=== PATIENT | male | born 1975 | race Caucasian/White ===

== ENCOUNTER 2018-04-18 14:52 | Emergency (ER) | payer MEDICAID ==
[~2018-04-18] VITALS: Ht 188 cm; Wt 150.0 kg
[~2018-04-18 14:52] MED LIST: ALBU8.5H8 IH; ALBU8HFA PO; HYDR30CR79 TOP
[2018-04-18] MEDS ORDERED: ketorolac tromethamine 15mg/ml inj. IM ONE (17:50)
[2018-04-18] MEDS ORDERED: diazepam 5mg tablet PO ONE (17:50)
[2018-04-18] MEDS ORDERED: HYDROcodone/acetaminophen 10/325mg tab PO ONE (17:50)
[2018-04-18] MEDS ORDERED: predniSONE 20 mg tablet PO ONE (17:50)
[2018-04-18] MEDS ORDERED: LIDO700A32 TOP (18:16)
[2018-04-18] MEDS ORDERED: IBUP-1986 PO (18:16)
[2018-04-18] MEDS ORDERED: DICL100G15 TOP (18:16)
[2018-04-18] MEDS ORDERED: CYCL-1 PO (18:16)
[2018-04-18] MEDS ORDERED: PRED50TA PO (18:16)
[2018-04-18 18:37] VITALS: BP 143/93
== END 2018-04-18 18:39 | disposition home or self-care (01) ==
LOC: ER 14:52
DX: G89.29 Other chronic pain (principal); M54.5 Low back pain; I10 Essential (primary) hypertension; Z79.899 Other long term (current) drug therapy
CPT/HCPCS: 96372; 99284; J1885; J7512

== ENCOUNTER 2018-07-04 11:53 | Emergency (ER) | payer MEDICAID ==
[~2018-07-04] VITALS: Ht 188 cm; Wt 149.0 kg
[~2018-07-04 11:53] MED LIST changes: +CYCL-1 PO; +DICL100G15 TOP; +IBUP-1986 PO; +LIDO700A32 TOP; +PRED50TA PO
[2018-07-04 12:09] VITALS: BP 143/81
[2018-07-04] MEDS ORDERED: proparacaine 0.5% ophthalmic drops 15ml LEFTEYE ONE (12:10)
== END 2018-07-04 13:20 | disposition home or self-care (01) ==
LOC: ER 11:53
DX: Z77.098 Contact with and (suspected) exposure to other hazardous, chiefly nonmedicinal, chemicals (principal); I10 Essential (primary) hypertension; G89.29 Other chronic pain; Z98.890 Other specified postprocedural states; Z79.899 Other long term (current) drug therapy
CPT/HCPCS: 99282

== ENCOUNTER 2018-11-13 21:36 | Emergency (ER) | payer MEDICAID ==
[~2018-11-13] VITALS: Ht 188 cm; Wt 120.9 kg
--- NOTE | 2018-11-13 21:46 | NUR ---
SMITA CASE #: [id number] PROVIDED BY PATIENT.
[2018-11-13] MEDS ORDERED: ketorolac trometh inj. 60 MG/2 ML VIAL IM ONE (22:45)
[2018-11-13] MEDS ORDERED: HYDROcodone/acetaminophen 10/325mg tab PO ONE (22:45)
[2018-11-13 23:48] VITALS: BP 164/108
== END 2018-11-13 23:50 | disposition home or self-care (01) ==
LOC: ER 21:37
DX: S62.306A Unspecified fracture of fifth metacarpal bone, right hand, initial encounter for closed fracture (principal); S20.212A Contusion of left front wall of thorax, initial encounter; S00.412A Abrasion of left ear, initial encounter; I10 Essential (primary) hypertension; M19.90 Unspecified osteoarthritis, unspecified site; G89.29 Other chronic pain; Z98.890 Other specified postprocedural states; Z79.899 Other long term (current) drug therapy; Y04.2XXA Assault by strike against or bumped into by another person, initial encounter; Y93.89 Activity, other specified; Y92.89 Other specified places as the place of occurrence of the external cause; Y99.8 Other external cause status
CPT/HCPCS: 29125; 71045; 73130; 96372; 99283; J1885

== ENCOUNTER → 2020-09-24 | Emergency (ER) | payer MEDICAID ==
[~2020-09-24] VITALS: Ht 188 cm; Wt 150.5 kg
[~2020-09-24] MED LIST changes: +CEPH250T PO; +LIDOcaine 1% W/epiNEPHrine 1:200,000 10ml vial IJ ONE; +SULF1TAB49 PO
[2020-09-24 13:42] VITALS: BP 154/105
== END | disposition home or self-care (01) ==
LOC: ER 13:10
DX: L02.211 Cutaneous abscess of abdominal wall (principal); I10 Essential (primary) hypertension; M19.90 Unspecified osteoarthritis, unspecified site; G89.29 Other chronic pain; Z98.890 Other specified postprocedural states; Z88.8 Allergy status to other drugs, medicaments and biological substances; Z79.2 Long term (current) use of antibiotics; Z79.899 Other long term (current) drug therapy
CPT/HCPCS: 10060; 99283

== ENCOUNTER 2021-06-28 17:41 | Emergency (ER) | payer MEDICAID ==
[~2021-06-28] VITALS: Ht 188 cm; Wt 156.8 kg
[~2021-06-28 17:41] MED LIST changes: +ALBU8.5H17 IH; -ALBU8.5H8 IH; -CEPH250T PO; -LIDOcaine 1% W/epiNEPHrine 1:200,000 10ml vial IJ ONE; -SULF1TAB49 PO
[2021-06-28 17:52] VITALS: BP 198/131
[2021-06-28] MEDS ORDERED: KEN0.1O TP (19:20)
== END 2021-06-28 19:23 | disposition home or self-care (01) ==
LOC: ER 17:42
DX: L23.9 Allergic contact dermatitis, unspecified cause (principal); I10 Essential (primary) hypertension; M19.90 Unspecified osteoarthritis, unspecified site; G89.29 Other chronic pain; Z98.890 Other specified postprocedural states; Z79.899 Other long term (current) drug therapy
CPT/HCPCS: 99283

== ENCOUNTER 2021-12-23 16:27 | Inpatient (IN) | payer MEDICAID ==
[~2021-12-23] VITALS: Ht 188 cm; Wt 156.8 kg
[2021-12-23] MEDS ORDERED: nitroGLYCERIN 0.4mg SUBLingual tab SL PRN ×2 (16:40→17:50)
[2021-12-23] MEDS ORDERED: metoprolol tartrate 1mg/ml inj IV ONE (16:45)
[2021-12-23 17:02] LABS: BASOPHILS # (AUTO) 0.1 X10'3 (0-0.2); BASOPHILS % (AUTO) 0.5 % (0-1); EOSINOPHILS # (AUTO) 0.2 X10'3 (0-0.9); EOSINOPHILS % (AUTO) 1.6 % (0-6); HEMATOCRIT 46.8 % (42.0-52.0); HEMOGLOBIN 15.7 g/dl (14.0-17.9); LYMPHOCYTES # (AUTO) 2.2 X10'3 (1.1-4.8); LYMPHOCYTES % (AUTO) 19.6 % (21-51); MEAN CORPUSCULAR HEMOGLOBIN 27.4 PG (27.0-31.0); MEAN CORPUSCULAR HGB CONC 33.6 g/dL (33.0-36.5); MEAN CORPUSCULAR VOLUME 81.7 FL (78-98); MEAN PLATELET VOLUME 9.4 FL (7.4-10.4); MONOCYTES # (AUTO) 0.6 X10'3 (0-0.9); MONOCYTES % (AUTO) 5.9 % (2-12); NEUTROPHILS % (AUTO) 72.4 % (42-75); PLATELET COUNT 233 X10'3 (140-440); RED BLOOD COUNT 5.73 X10'6 (4.70-6.10); RED CELL DISTRIBUTION WIDTH 14.5 % (11.5-14.5)
[2021-12-23 17:23] LABS: ALANINE AMINOTRANSFERASE 29 U/L (12-78); ALBUMIN 3.7 G/DL (3.4-5.0); ALBUMIN/GLOBULIN RATIO 1.1 (1.1-1.5); ALKALINE PHOSPHATASE 69 IU/L (46-116); ANION GAP 8 (8-16); ASPARTATE AMINO TRANSFERASE 20 U/L (10-37); BILIRUBIN,TOTAL 0.3 MG/DL (0.1-1.0); BLOOD UREA NITROGEN 16 MG/DL (7-18); BUN/CREATININE RATIO 17.4 (5.4-32.0); CALCIUM 8.8 MG/DL (8.5-10.1); CHLORIDE 106 MMOL/L (99-107); CREATININE 0.92 MG/DL (0.60-1.10); ETHANOL < 0.010 GM/DL (0.0-0.010); GLUCOSE 119 MG/DL (70-104); SODIUM 143 MMOL/L (135-145); TOTAL CARBON DIOXIDE 29.4 MMOL/L (24-32); TOTAL PROTEIN 7.1 G/DL (6.4-8.2); eGFR 89 ML/MIN
[2021-12-23] MEDS ORDERED: ondansetron/PF 4mg/2ml inj IV ONE (17:25)
[2021-12-23] MEDS ORDERED: potassium Cl 20 mEq SR tablet PO STA (17:26)
[2021-12-23] MEDS ORDERED: POTASSIUM BICARB 20meq eff tab 20 MEQ TABLET.EFF PO PRN (17:50)
[2021-12-23] MEDS ORDERED: morphine 2 MG/ML inj. syringe IV PRN ×2 (17:50)
[2021-12-23] MEDS ORDERED: PERFLUTREN PROTEIN-A MICROSPHR (Optison) 0.22 MG/ML 3ML VIAL IV ONE (17:50)
[2021-12-23] MEDS ORDERED: magnesium hydroxide 30ml (MOM) UD suspension PO PRN (17:50)
[2021-12-23] MEDS ORDERED: mag hydrox/Alum hydrox/simeth 30ml oral suspension PO PRN (17:50)
[2021-12-23] MEDS ORDERED: ondansetron/PF 4mg/2ml inj IV PRN (17:50)
[2021-12-23] MEDS ORDERED: acetaminophen 325mg tablet PO PRN (17:50)
[2021-12-23] MEDS ORDERED: metoprolol tartrate 1mg/ml inj IV PRN (17:50)
[2021-12-23] MEDS ORDERED: aminophylline 250mg/10ml inj. IV PRN (17:50)
[2021-12-23] MEDS ORDERED: nitroGLYCERIN 1gm ointment UD TP ONE (17:50)
[2021-12-23] MEDS ORDERED: magnesium Cl slow-release 64mg tablet PO PRN (17:50)
[2021-12-23] MEDS ORDERED: potassium CL 10mEq/100ml bag 100 ML IV PRN (17:50)
[2021-12-23] MEDS ORDERED: magnesium 4gm in 100ml NS 100 ML IV PRN (17:50)
[2021-12-23] MEDS ORDERED: magnesium 2GM in 50ml NS 50 ML IV PRN (17:50)
[2021-12-23] MEDS ORDERED: regadenoson 0.4mg/5ml syringe IV PRN (17:50)
[2021-12-23] MEDS ORDERED: hydrALAZINE 20mg/ml inj. IV PRN (17:55)
[2021-12-23] MEDS: normal saline 1000ml 1,000 ML IV SCH ×2 (18:07→21:55)
--- NOTE | 2021-12-23 18:25 | NUR ---
report to todd spicer
[2021-12-23] MEDS ORDERED: LISI1TAB51 PO (18:29)
[2021-12-23] MEDS ORDERED: LEVO75TA7 PO (18:29)
[2021-12-23] MEDS ORDERED: HYDR-3972 PO (18:29)
[2021-12-23] MEDS ORDERED: INDLA80C PO (18:29)
--- NOTE | 2021-12-23 18:44 | NUR ---
Dayshift reports treating K with po potassium. Pt pink, alert, no acute/resp distress. Family at bedside. Bed in lowest position, wheels locked, rail 2/2 up, call [place] in reach. Pt states chest pain is much better than when he arrived, almost unmentionable.
[2021-12-23] MEDS: K and/or MAG REPLACEMENT MC SCH (20:00)
[2021-12-23] MEDS: propranolol 40mg tablet PO SCH (20:27)
[2021-12-23] MEDS: docusate sod 100mg capsule PO SCH (20:27)
[2021-12-23 20:32] LABS: POTASSIUM 3.1 MMOL/L (3.5-5.1)
[2021-12-23] MEDS: HYDROcodone/acetaminophen 10/325mg tab PO PRN (20:39)
--- NOTE | 2021-12-23 20:42 | NUR ---
Pt pink, no acute/resp distress. Bed in lowest position, wheels locked, rail 2/2 up. Pt laying supine. Pt able to reposition self prn. Will continue to monitor for acute changes and needs.
[2021-12-23 20:44] LABS: CLARITY,URINE CLEAR (Clear); COLOR,URINE YELLOW (Yellow); GLUCOSE, URINE NEGATIVE (Neg); KETONES,URINE NEGATIVE (Neg); LEUKOCYTE ESTERASE ,URINE NEGATIVE (Neg); NITRITES, URINE NEGATIVE (Neg); OCCULT BLOOD,URINE TRACE-INTACT (Neg); PROTEIN,URINE NEGATIVE (Neg); UROBILINOGEN,URINE 0.2 E.U/dL (0.2-1.0)
[2021-12-23] MEDS ORDERED: PROP10TA10 PO (20:44)
[2021-12-23] MEDS ORDERED: KETO15CR2 (20:44)
[2021-12-23] MEDS ORDERED: PROP20TA6 PO (20:44)
[2021-12-23] MEDS ORDERED: MELO-102 PO (20:44)
[2021-12-23] MEDS ORDERED: CLON-442 (20:44)
[2021-12-23] MEDS ORDERED: AMLO5TAB16 PO (20:44)
[2021-12-23] MEDS ORDERED: NAPR-996 PO (20:44)
[2021-12-23 20:50] LABS: URINE AMPHETAMINE SCREEN NEGATIVE (Neg); URINE BARBITUATE SCREEN NEGATIVE (Neg); URINE BENZODIAZEPINES SCREEN NEGATIVE (Neg); URINE CANNABINOID SCREEN POSITIVE (Neg); URINE COCAINE SCREEN NEGATIVE (Neg); URINE METHADONE SCREEN NEGATIVE (Neg); URINE OPIATE SCREEN POSITIVE (Neg); URINE PHENCYCLIDINE SCREEN NEGATIVE (Neg)
[2021-12-23 20:55] LABS: UA COLLECTION TYPE CLN CATCH MIDSTREAM
[2021-12-23 20:57] LABS: BACTERIA,URINE NONE SEEN /HPF (Neg); MUCUS STRANDS FEW /LPF (Neg); RBC,URINE 0-2 /HPF (0-2); SQUAMOUS EPITHELIAL CELL,UR FEW /LPF (FEW); WBC,URINE NONE SEEN /HPF (0-4)
[2021-12-23 20:58] LABS: AMORPHOUS PHOSPHATES 1+
--- NOTE | 2021-12-23 21:09 | NUR ---
Attempted to call report. RN to call the ED when ready for report. Pt pink, no acute/resp distress. Bed in lowest position, wheels locked, rail 2/2 up. Pt laying supine. Pt able to reposition self prn. Will continue to monitor for acute changes and needs.
--- NOTE | 2021-12-23 21:13 | NUR ---
UA spec collected, labeled and walked to lab. Pt pink, alert, no acute/resp distress. PIV site c/d/i s complication or adverse.
[2021-12-23] MEDS: POTASSIUM BICARB 20meq eff tab 20 MEQ TABLET.EFF PO PRN (21:55)
[2021-12-23 22:00] VITALS: BP 121/77
[2021-12-24] VITALS (13 sets, daily range): BP systolic 126–163; BP diastolic 79–102
[2021-12-24] MEDS: propranolol 40mg tablet PO SCH ×2 (07:04→19:44)
[2021-12-24] MEDS: levoTHYROXINE 75mcg tablet PO SCH (07:04)
[2021-12-24] MEDS: HYDROcodone/acetaminophen 10/325mg tab PO PRN ×3 (07:04→20:59)
[2021-12-24] MEDS: HYDROchlorothiazide 25mg tablet PO SCH (07:05)
[2021-12-24] MEDS: aspirin 81mg tab.chew PO SCH (07:06)
[2021-12-24] MEDS: enoxaparin 40mg/0.4ml syringe SUBCUT SCH (07:07)
[2021-12-24] MEDS: lisinopril 20mg tablet PO SCH (07:13)
[2021-12-24 07:23] LABS: BASOPHILS % (AUTO) 0.2 % (0-1); EOSINOPHILS # (AUTO) 0.1 X10'3 (0-0.9); EOSINOPHILS % (AUTO) 1.2 % (0-6); HEMATOCRIT 43.3 % (42.0-52.0); HEMOGLOBIN 14.1 g/dl (14.0-17.9); LYMPHOCYTES # (AUTO) 1.7 X10'3 (1.1-4.8); LYMPHOCYTES % (AUTO) 15.1 % (21-51); MEAN CORPUSCULAR HEMOGLOBIN 26.8 PG (27.0-31.0); MEAN CORPUSCULAR HGB CONC 32.6 g/dL (33.0-36.5); MEAN CORPUSCULAR VOLUME 82.3 FL (78-98); MEAN PLATELET VOLUME 9.4 FL (7.4-10.4); MONOCYTES # (AUTO) 0.8 X10'3 (0-0.9); MONOCYTES % (AUTO) 7.2 % (2-12); NEUTROPHILS # (AUTO) 8.5 X10'3 (1.8-7.7); NEUTROPHILS % (AUTO) 76.3 % (42-75); PLATELET COUNT 212 X10'3 (140-440); RED BLOOD COUNT 5.26 X10'6 (4.70-6.10); RED CELL DISTRIBUTION WIDTH 14.4 % (11.5-14.5); WHITE BLOOD COUNT 11.1 X10'3 (4.5-11.0)
[2021-12-24 07:27] LABS: ALBUMIN 3.2 G/DL (3.4-5.0); ANION GAP 8 (8-16); BLOOD UREA NITROGEN 12 MG/DL (7-18); BUN/CREATININE RATIO 14.6 (5.4-32.0); CALCIUM 8.2 MG/DL (8.5-10.1); CHLORIDE 106 MMOL/L (99-107); CREATININE 0.82 MG/DL (0.60-1.10); GLUCOSE 100 MG/DL (70-104); POTASSIUM 3.3 MMOL/L (3.5-5.1); SODIUM 143 MMOL/L (135-145); TOTAL CARBON DIOXIDE 29.1 MMOL/L (24-32); eGFR > 90 ML/MIN
[2021-12-24] MEDS: docusate sod 100mg capsule PO SCH ×2 (08:00→19:43)
[2021-12-24] MEDS: K and/or MAG REPLACEMENT MC SCH ×2 (08:00→19:53)
[2021-12-24] MEDS ORDERED: aminophylline 500mg/20ml vial IV PRN (08:51)
--- NOTE | 2021-12-24 09:27 | NUR ---
Patient in room PCU 3015B. I have received report from JOYCE Asencio and had the opportunity to ask questions and assume patient care.
[2021-12-24] MEDS: POTASSIUM BICARB 20meq eff tab 20 MEQ TABLET.EFF PO PRN ×3 (10:21→19:43)
[2021-12-24] MEDS: normal saline 1000ml 1,000 ML IV SCH ×2 (13:06→23:33)
--- NOTE | 2021-12-24 14:18 | NUR ---
Per Dr. Patel telephone order okay to change patient's diet to heart healthy and then place pt at NPO at midnight tonight for possible heart cath pending cardiology's recommendations [facility]
--- NOTE | 2021-12-24 18:11 | NUR ---
Problems reprioritized. Patient report given, questions answered & plan of care reviewed with JOYCE Lawler[].
[2021-12-25 02:00] VITALS: BP 143/97
[2021-12-25 06:00] VITALS: BP 175/102
--- NOTE | 2021-12-25 06:32 | NUR ---
End of shift report given to Michell COOK. Pt stable. No acute complaints.
[2021-12-25 06:36] LABS: BASOPHILS % (AUTO) 0.2 % (0-1); EOSINOPHILS # (AUTO) 0.2 X10'3 (0-0.9); EOSINOPHILS % (AUTO) 2.2 % (0-6); HEMATOCRIT 45.9 % (42.0-52.0); HEMOGLOBIN 15.5 g/dl (14.0-17.9); LYMPHOCYTES # (AUTO) 1.7 X10'3 (1.1-4.8); MEAN CORPUSCULAR HEMOGLOBIN 27.6 PG (27.0-31.0); MEAN CORPUSCULAR HGB CONC 33.7 g/dL (33.0-36.5); MEAN CORPUSCULAR VOLUME 81.9 FL (78-98); MEAN PLATELET VOLUME 9.8 FL (7.4-10.4); MONOCYTES # (AUTO) 0.8 X10'3 (0-0.9); MONOCYTES % (AUTO) 7.6 % (2-12); NEUTROPHILS # (AUTO) 7.7 X10'3 (1.8-7.7); PLATELET COUNT 223 X10'3 (140-440); RED CELL DISTRIBUTION WIDTH 14.4 % (11.5-14.5); WHITE BLOOD COUNT 10.4 X10'3 (4.5-11.0)
[2021-12-25 07:08] LABS: ALBUMIN 3.3 G/DL (3.4-5.0); ANION GAP 9 (8-16); BLOOD UREA NITROGEN 9 MG/DL (7-18); BUN/CREATININE RATIO 11.4 (5.4-32.0); CALCIUM 8.2 MG/DL (8.5-10.1); CHLORIDE 105 MMOL/L (99-107); CREATININE 0.79 MG/DL (0.60-1.10); GLUCOSE 105 MG/DL (70-104); POTASSIUM 3.4 MMOL/L (3.5-5.1); SODIUM 141 MMOL/L (135-145); TOTAL CARBON DIOXIDE 26.9 MMOL/L (24-32); eGFR > 90 ML/MIN
[2021-12-25] MEDS: levoTHYROXINE 75mcg tablet PO SCH (07:30)
[2021-12-25] MEDS: lisinopril 20mg tablet PO SCH (07:31)
[2021-12-25] MEDS: enoxaparin 40mg/0.4ml syringe SUBCUT SCH (07:32)
[2021-12-25] MEDS: docusate sod 100mg capsule PO SCH (07:40)
[2021-12-25] MEDS: HYDROchlorothiazide 25mg tablet PO SCH ×2 (07:41→08:58)
[2021-12-25] MEDS: K and/or MAG REPLACEMENT MC SCH (08:00)
[2021-12-25 08:50] VITALS: BP 168/113
[2021-12-25] MEDS ORDERED: amLODIPine 5mg tablet PO SCH (08:50)
--- NOTE | 2021-12-25 08:52 | NUR ---
Dr. Patel talked to the patient about his medication and importance of taking his blood pressure medications. Patient agreed to take the HCTZ that he refused this am
--- NOTE | 2021-12-25 08:56 | NUR ---
I called pharmacy to request the morning dose of Propanolol as it was not available in the specific bin nor in the [employer] machine
[2021-12-25] MEDS: HYDROcodone/acetaminophen 10/325mg tab PO PRN (08:59)
[2021-12-25] MEDS: aspirin 81mg tab.chew PO SCH (08:59)
[2021-12-25] MEDS ORDERED: PROP40TA72 PO (10:04)
--- NOTE | 2021-12-25 10:09 | NUR ---
witness medication pass with Carmen carlos [facility] student
--- NOTE | 2021-12-25 10:46 | NUR ---
Patient vomited, he said he felt anxious and stressed out. He asked me for antiemetic medication as he is not ready to take the Propanolol yet at this time Addendum: 12/25/21 at 1047 by Michell Sanchez RN Zofran IV given as indicated
[2021-12-25 11:00] VITALS: BP 181/105
--- NOTE | 2021-12-25 11:30 | NUR ---
Propanolol offered to patient to take since the BP reading around 11:00 was 181/105, patient refused it. Will retry to convince the patient to take it
--- NOTE | 2021-12-25 12:33 | NUR ---
HR 47 BP 172/91 oral temp 97.8 F. Patient complaining being "cold", sweating. Blood sugar checked 120 mg/dl when checked, Will not administer Propanolol due to bradycardia
[2021-12-25] MEDS: propranolol 40mg tablet PO SCH (12:34)
[2021-12-25] MEDS: POTASSIUM BICARB 20meq eff tab 20 MEQ TABLET.EFF PO PRN (12:43)
--- NOTE | 2021-12-25 13:05 | NUR ---
Patient and his at bedside requesting to have the peripheral IV removed already because its leaking of blood. Patient requested shower due to sweating and wanted to feel better. Student nurse and instructed assisted patient in getting into the shower
--- NOTE | 2021-12-25 13:34 | NUR ---
Paged Dr. Patel PAGER ID: [phone] MESSAGE: RAMY Galarza RN ext [phone] RE: Alex Castellanos. Patient and his wants to talk to you before patient be discharge
[2021-12-25 13:50] VITALS: BP 170/100
--- NOTE | 2021-12-25 13:50 | NUR ---
Dr. Patel came by to talk to patient and his at bedside. Dr. Patel asked me to recheck patient's BP manually, I got 170/[address] Patel said to reinsert peripheral IV and give the Hydralazine IV. I told patient and his that we will have to put another IV so we can give the IV Hydralazine. Addendum: 12/25/21 at 1442 by Michell Sanchez RN Late entry: Dr. Patel said to order CTA chest. I did not get the chance to write to put order yet but I was planning to as soon as I get a change then patient decided he wanted to leave instead.
--- NOTE | 2021-12-25 14:05 | NUR ---
Lashawn Patel [facility] Michell RN ext [phone] RE: Alex Castellanos. Patient and his decided to just go home even you told them to stay another night due to high BP. Patient stated they will just follow up with the PCP tomorrow and take his BP meds Addendum: 12/25/21 at 1429 by Michell Sanchez RN Addendum to the above note: I tried to convince patient not to leave as his BP still high and can lead to a problem like stroke or something else. Patient states "No, I can't stay another night in the hospital like this! My blood pressure will just get worse. Patient was also picking up his stuff and the also want patient to go home too.v
--- NOTE | 2021-12-25 14:09 | NUR ---
Patient discharged home accompanied by his . Discharge instructions given to patient and his , both verbalized understanding of all instructions given. Patient was advised to go to urgent care or ER if necessary and was advised to monitor the BP and HR at home and to keep record of the BP readings, Instructed to ensure they have all the belongings with them before leaving. Addendum: 12/25/21 at 1430 by Michell Sanchez RN I notified Dandy COOK, the charge nurse about what happened. Addendum: 12/25/21 at 1624 by Michell Sanchez RN Late entry: Patient was told we need to get him to the wheelchair upon discharge but he refused to be transported via wheelchair. I asked a student nurse from [employer] to at least escort the patient upon leaving the hospital
[2021-12-25] MEDS ORDERED: labetalol 100mg tablet PO SCH (20:00)
== END 2021-12-25 14:15 | disposition home or self-care (01) | DRG 198 ==
LOC: ER 16:28 → ED HOLD 17:53 → OBSVTOIN 17:53 → INTOOBSV 17:53 → PCU 3S 22:52
PROVIDERS: ADMIT Family Medicine; ATTEND Family Medicine
PROC: 4A02XM4 Measurement of Cardiac Total Activity, External Approach (ICD-10-PCS; principal; 2021-12-24)
PROC: 3E033HZ Introduction of Radioactive Substance into Peripheral Vein, Percutaneous Approach (ICD-10-PCS; 2021-12-24)
DX: R07.89 Other chest pain (principal); I20.9 Angina pectoris, unspecified; E03.9 Hypothyroidism, unspecified; E66.01 Morbid (severe) obesity due to excess calories; E87.6 Hypokalemia; I10 Essential (primary) hypertension; G89.29 Other chronic pain; M19.90 Unspecified osteoarthritis, unspecified site; Z68.41 Body mass index [BMI] 40.0-44.9, adult; Z71.3 Dietary counseling and surveillance
CPT/HCPCS: 36415; 71045; 78452; 80048; 80053; 80305; 80320; 81001; 82948; 83735; 83880; 84132; 84484; 85025; 87081; 93017; 93306; 96374; 99285; A9500; G0378; J0360; J1650; J2405; J2785; J3490; J7030